=== PATIENT | male | born 1990 | race African-American/Black ===

== ENCOUNTER 2017-04-29 14:08 | Emergency (ER) | payer SELFPAY ==
[~2017-04-29] VITALS: Ht 167.6 cm; Wt 69.9 kg
[2017-04-29 14:28] VITALS: BP 120/76
[2017-04-29] MEDS ORDERED: Dicyclomine HCl 10mg/5ml oral soln ORAL ONE (14:45)
--- NOTE | 2017-04-29 15:10 | Emergency Room Report ---
History of Present Illness General Chief Complaint: Abdominal Pain Source: Patient Present Illness HPI 26-year-old male presents to the emergency department Complaining of 4/10 in severity dysuria, swollen bilateral tender inguinal lymph nodes and diarrhea 3 days. Patient reports his aunt only 2 episodes of diarrhea over the course of the last 3 days however his primary concern is his penile symptoms. Patient denies nausea, vomiting, fevers, chills, external genital lesions, testicular pain or swelling, penile discharge, rashes, eye symptoms or joint pain. He denies recent travel he reports recent unprotected intercourse. He denies abdominal tenderness. Denies CP, Palpitations, LOC, AMS, dizziness, Changes in Vision, Sensation, paresthesias, or a sudden severe headache. Allergies: Coded Allergies: IBUPROFEN (Verified Allergy, Intermediate, 04/29/17) face hives and irritaion Patient History Past Medical History: see triage record Past Surgical History: none Pertinent Family History: none Reviewed Nursing Documentation: PMH: Agreed; PSxH: Agreed Nursing Documentation-PMH Past Medical History: No Stated History Review of Systems All Other Systems: negative except mentioned in HPI Physical Exam Vital Signs Date Time Temp Pulse Resp B/P (MAP) Pulse Ox O2 Delivery O2 Flow Rate FiO2 04/29/17 14:21 98.6 67 16 120/76 97 Room Air 98.6 Sp02 EP Interpretation: reviewed, normal General Appearance: no apparent distress, alert, GCS 15, non-toxic Head: normocephalic, atraumatic ENT: hearing grossly normal, normal voice Neck: full range of motion Respiratory: lungs clear, normal breath sounds, speaking full sentences Cardiovascular #1: regular rate, rhythm Gastrointestinal: normal bowel sounds, non tender, soft Rectal: deferred Genitourinary: normal inspection, no CVA tenderness, penis normal, scrotum normal, other - bilateral LAD -inguinal . no sores, rashes or obvious d/c noted. no testicular pain/tenderness, normal reflexes. Musculoskeletal: back normal, gait/station normal, normal range of motion, non- tender Neurologic: alert, oriented x3, responsive, motor strength/tone normal, sensory intact, speech normal, grossly normal Psychiatric: judgement/insight normal Skin: normal color, no rash, warm/dry, well hydrated Lymphatic: inguinal node tender (R), inguinal node tender (L) Medical Decision Making PA Attestation Dr. Bliss is my supervising Physician whom patient management has been discussed with. Diagnostic Impression: Primary Impression: Urethritis Additional Impression: Diarrhea Qualified Codes: R19.7 - Diarrhea, unspecified ER Course 26-year-old male presents to the emergency department Complaining of 4/10 in severity dysuria, swollen bilateral tender inguinal lymph nodes and diarrhea 3 days. Patient reports his aunt only 2 episodes of diarrhea over the course of the last 3 days however his primary concern is his penile symptoms. Patient denies nausea, vomiting, fevers, chills, external genital lesions, testicular pain or swelling, penile discharge, rashes, eye symptoms or joint pain. He denies recent travel he reports recent unprotected intercourse. He denies abdominal tenderness. Denies CP, Palpitations, LOC, AMS, dizziness, Changes in Vision, Sensation, paresthesias, or a sudden severe headache. Ddx considered but are not limited to UTi , Urethritis, LGV, STI, Stone, Cystitis, prostatitis, colitis just to name a few. [employer] for PE was: Sheila PROCTOR Vital signs: are WNL, pt. is afebrile H&PE are most consistent with Urethritis- bilateral LAD -inguinal . no sores, rashes or obvious d/c noted. no testicular pain/tenderness, normal reflexes. ORDERS: - Will treat prophylactically for G&C. ED INTERVENTIONS: -250mg Rocephin IM - Discussed with patient that if he was truly concerned about possible STD exposure that his partners need to be treated as well as he can become reinfected even after taking medications. Patient is given a list of free STD clinics in the area. DISCHARGE: At this time pt. is stable for d/c to home. Will provide printed patient care instructions, and any necessary prescriptions. Care plan and follow up instructions have been discussed with the patient prior to discharge. Last Vital Signs Date Time Temp Pulse Resp B/P (MAP) Pulse Ox O2 Delivery O2 Flow Rate FiO2 04/29/17 14:28 98.6 67 16 120/76 97 Room Air 98.6 Disposition: HOME, SELF-CARE Condition: Stable Scripts Dicyclomine Hcl* (DICYCLOMINE HCL*) 10 Mg Capsule 10 MG PO BID, #6 CAP Prov: Mariah Villalobos P.A. 04/29/17 Doxycycline Hyclate* (VIBRAMYCIN*) 100 Mg Capsule 100 MG ORAL EVERY 12 HOURS for 7 Days, #14 CAP 0 Refills Prov: Mariah Villalobos 04/29/17 Patient Instructions: Diarrhea, Adult, [id number], Urethritis, Adult Additional Instructions: Take medications as directed. Follow up with a Primary Care Provider in 3-5 days, even if your symptoms have resolved. --Please review list of primary care clinics, if you do not already have a primary care provider Return sooner to ED if new symptoms occur, or current symptoms become worse. - Please note that this Emergency Department Report was dictated using [email or web address]!voice professor technology software, occasionally this can lead to erroneous entry secondary to interpretation by the dictation equipment. Mariah Villalobos Apr 29, 2017 15:10
[2017-04-29] MEDS ORDERED: Lidocaine 1% MPF 10mg/ml 5ml INJ ONE (15:15)
[2017-04-29] MEDS ORDERED: VIBRAMYCIN100 MG ORAL (15:25)
[2017-04-29] MEDS ORDERED: DICYCLOMINE HCL10 MG PO (15:25)
[2017-04-29 15:36] VITALS: BP 120/76
== END 2017-04-29 15:37 | disposition home or self-care (01) ==
LOC: EMR 14:44
DX: N34.2 Other urethritis (principal); R19.7 Diarrhea, unspecified; Z88.6 Allergy status to analgesic agent
CPT/HCPCS: 96372; 99284; J0696